=== PATIENT | female | born 1965 | race Caucasian/White ===

== ENCOUNTER 2016-07-24 06:52 | Emergency (ER) | payer OTHER ==
[2016-07-24 07:00] VITALS: RESP 16
--- NOTE | 2016-07-24 07:04 | EDPHY ---
H & P Stated Complaint: N/V and Chest tightness for 3days recent chnage in bipolar medications HPI/ROS: CHIEF COMPLAINT: Chest tightness, nausea, vomiting. HISTORY OF PRESENT ILLNESS: The patient is a 50-year-old female with a history of bipolar disorder who presents with chest tightness and nausea 2 days ago. These symptoms began after she was switched from Invega injections to oral Invega. She was given 9mg PO Invega at that time. She also had her Topamax dose increased from 50 mg to 75mg per day on Thursday. She had no other associated symptoms--such as shortness of breath, lightheadedness, or radiation of pain.She refused her medications yesterday. She admits mild associated diarrhea. Today she denies chest pain, fever, abdominal pain, shortness of breath, or other complaints. Her mother of a cardiac arrhythmia at 48. Her uncle had multiple bypass surgeries in his late 40s. She has no history of diabetes or hypertension. She does not know her cholesterol levels. REVIEW OF SYSTEMS: A ten point review of systems was performed and is negative with the exception of the items mentioned in the HPI. Source: Patient Exam Limitations: No limitations - Personal History LMP (Females 10-55): 8-14 Days Ago Current Tetanus/Diphtheria Vaccine: Unsure Current Tetanus Diphtheria and Acellular Pertussis (TDAP): Unsure - Medical/Surgical History Hx Asthma: No Hx Chronic Respiratory Disease: No Hx Diabetes: No Hx Cardiac Disease: No Hx Renal Disease: No Hx Cirrhosis: No Hx Alcoholism: No Hx HIV/AIDS: No Hx Splenectomy or Spleen Trauma: No Other PMH: Bipolar disorder. - Social History Smoking Status: Never smoked Additional Social History: Nonsmoker, no alcohol use. Moved to [place] from [place]--she has children in [place], is . - Physical Exam Exam: General Appearance: Alert. Vital signs reviewed. Blood pressure 120/83. Eyes: Pupils equal and round, no conjunctival injection, no discharge. Anicteric. ENT, Mouth: Mucous membranes are moist, no oropharyngeal erythema or edema. Neck: No lymphadenopathy, supple. Respiratory: Lungs are clear to auscultation; no wheezes, rales, or rhonchi. Cardiovascular: Regular rate and rhythm; no murmur, rub, or gallop. Gastrointestinal: Abdomen is soft and nontender, no masses or organomegaly, bowel sounds normal. Skin: Warm and dry, no rashes on exposed skin, normal color. Back: Nontender to palpation over the thoracolumbar spine. No CVAT. Extremities: No lower extremity edema, no calf tenderness or swelling. Neurological: Alert and oriented. Moving all four extremities easily and equally. Psychiatric: Normal affect. Constitutional: Initial Vital Signs Temperature (C) 37 C 07/24/16 06:57 Heart Rate 85 07/24/16 06:57 Respiratory Rate 16 07/24/16 06:57 Blood Pressure 120/83 H 07/24/16 06:57 O2 Sat (%) 96 07/24/16 06:57 O2 Delivery Mode Room Air Allergies/Adverse Reactions: amoxicillin Allergy (Verified 07/24/16 07:00) Penicillins Allergy (Verified 07/24/16 07:00) Home Medications: Medication Instructions Recorded INVEGA SUSTENNA 07/24/16 Medical Decision Making - Diagnostics EKG Interpretation: 12 lead EKG is interpreted in Trace master View by emergency department physician. ED Course/Re-evaluation: This 50-year-old female with a history of bipolar disorder presents with 2 days of chest pain and nausea. These symptoms began on Thursday after her [place] [facility] program initiated some changes in her medications. She was switched from Invega injections to oral Invega and had her first oral dose, 9mg. Her Topamax dose was increased from 50mg to 75mg as well at that time. She does not have any chest tightness or nausea on presentation today. She admits a mild associated diarrhea but no other symptoms. She does have a significant family cardiac history. An IV was established and labs ordered including cardiac enzymes. EKG obtained. CBC, chemistries, troponin were drawn. Troponin is normal. There is no anemia. No concerning laboratory values. On review of her EKG I specifically looked at QT interval, as Invega can cause QT prolongation. She has a normal QT interval. I do not find evidence in acute coronary syndrome and am not concerned that her chest pain 2 days ago had a cardiac source. She was reassured on this count. She will be seen her psychiatrist this afternoon. She has been given copies of her labs and her EKG. She will discuss how best she can continue with Invega. I do not feel that additional emergency department evaluation is needed. Differential Diagnosis: Chest pain including but not limited to medication side effect, myocardial ischemia, pulmonary embolus, chest wall pain, pleural inflammation and pulmonary infectious causes. - Data Points Laboratory Results: Laboratory Results 07/24/16 07:36 07/24/16 07:36 07/24/16 07/24/16 07:36 07:36 WBC 3.60 10^3/uL L 10^3/uL (3.80-9.50) RBC 4.22 10^6/uL 10^6/uL (4.18-5.33) Hgb 13.8 g/dL g/dL (12.6-16.3) Hct 38.7 % % (38.0-47.0) MCV 91.7 fL fL (81.5-99.8) MCH 32.7 pg pg (27.9-34.1) MCHC 35.7 g/dL g/dL (32.4-36.7) RDW 12.6 % % (11.5-15.2) Plt Count 175 10^3/uL 10^3/uL (150-400) MPV 10.4 fL fL (8.7-11.7) Neut % (Auto) 53.3 % % (39.3-74.2) Lymph % (Auto) 31.4 % % (15.0-45.0) [place] % (Auto) 11.7 % % (4.5-13.0) Eos % (Auto) 2.8 % % (0.6-7.6) Baso % (Auto) 0.8 % % (0.3-1.7) Nucleat RBC Rel Count 0.0 % % (0.0-0.2) Absolute Neuts (auto) 1.92 10^3/uL 10^3/uL (1.70-6.50) Absolute Lymphs (auto) 1.13 10^3/uL 10^3/uL (1.00-3.00) Absolute Monos (auto) 0.42 10^3/uL 10^3/uL (0.30-0.80) Absolute Eos (auto) 0.10 10^3/uL 10^3/uL (0.03-0.40) Absolute Basos (auto) 0.03 10^3/uL 10^3/uL (0.02-0.10) Absolute Nucleated RBC 0.00 10^3/uL 10^3/uL (0-0.01) Immature Gran % 0.0 % % (0.0-1.1) Immature Gran # 0.00 10^3/uL 10^3/uL (0.00-0.10) Sodium 141 mEq/L mEq/L (134-144) Potassium 3.8 mEq/L mEq/L (3.5-5.2) Chloride 108 mEq/L mEq/L (97-110) Carbon Dioxide 21 mEq/l L mEq/l (22-31) Anion Gap 12 mEq/L mEq/L (8-16) BUN 18 mg/dL mg/dL (7-23) Creatinine 0.9 mg/dL mg/dL (0.6-1.0) Estimated GFR > 60 Glucose 106 mg/dL H mg/dL (70-100) Calcium 8.9 mg/dL mg/dL (8.5-10.4) Troponin I < 0.012 ng/mL ng/mL (0-0.034) Departure - Departure Disposition: Home, Routine, Self-Care Clinical Impression: Chest pain Qualifiers: Chest pain type: other chest pain Qualified Code(s): R07.89 - Other chest pain Condition: Good Instructions: Noncardiac Chest Pain (ED) Additional Instructions: It is not entirely clear whether the chest pain and the nausea that you experienced 2 days ago, after taking Invega, is because of the Invega. However , it is plausible that that is the case. I recommend that you talk with your psychiatrist this afternoon, as planned, and discuss how you can best continue with oral Invega. I am providing you with a copy of your EKG and your laboratory studies from today. I do not think that you have a primary heart problem that caused you to have chest pain 2 days ago. If you develop recurrent chest pain, difficulty breathing, lightheadedness or dizziness--you should be re-examined. I am referring you to Dr. Us for primary care. Referrals: [facility] [Other] - As per Instructions Gabe Us MD [[facility] Primary Care Provider] - As per Instructions Report Scribed for: Marita Schultz Report Scribed by: Turner Villanueva Date of Report: 04/20/17 Time of Report: 07:20 Physician Review and Approval Statement: 07/24/16 07:04 Portions of this note were transcribed by the medical staff physician. I, Dr. Marita Schultz, personally performed the history, physical exam, and medical decision- making; and confirmed the accuracy of the information in the transcribed note.
--- NOTE | 2016-07-24 07:20 | CPEKG ---
Heart Rate: 74 RR Interval: 811 P-R Interval: 156 QRSD Interval: 76 QT Interval: 396 QTC Interval: 440 P [place]: 17 QRS [place]: -15 T Wave [place]: 18 EKG Severity - BORDERLINE ECG - EKG Impression: SINUS RHYTHM EKG Impression: BORDERLINE LEFT AXIS DEVIATION EKG Impression: BORDERLINE T ABNORMALITIES, ANTERIOR LEADS Electronically Signed By: Rusty Quigley 24-Jul-2016 18:09:59
[2016-07-24 07:58] LABS: ADD DIFF? NO; ADD MORPH? NO; ADD SCAN? NO; ATYPICAL LYMPHOCYTE FLAG 10 (0-99); FRAGMENT RBC FLAG 0 (0-99); HEMATOCRIT 38.7 % (38.0-47.0); HEMOGLOBIN 13.8 g/dL (12.6-16.3); LEFT SHIFT FLG 0 (0-99); LIPEMIA HEMOLYSIS FLAG 90 (0-99); MEAN CELL HEMOGLOBIN 32.7 pg (27.9-34.1); MEAN CELL HEMOGLOBIN CONCENTR. 35.7 g/dL (32.4-36.7); MEAN CELL VOLUME 91.7 fL (81.5-99.8); MEAN PLATELET VOLUME 10.4 fL (8.7-11.7); PLATELET CLUMPS FLAG 10 (0-99); PLATELET COUNT 175 10^3/uL (150-400); RED BLOOD CELL COUNT 4.22 10^6/uL (4.18-5.33); RED CELL DISTRIBUTION WIDTH 12.6 % (11.5-15.2)
[2016-07-24 08:13] LABS: CALCIUM 8.9 mg/dL (8.5-10.4); CARBON DIOXIDE 21 mEq/l (22-31); CHLORIDE 108 mEq/L (97-110); CREATININE 0.9 mg/dL (0.6-1.0); GLOMERULAR FILTRATION RATE > 60; GLUCOSE 106 mg/dL (70-100); POTASSIUM 3.8 mEq/L (3.5-5.2)
[2016-07-24 08:18] LABS: ANION GAP 12 mEq/L (8-16); SODIUM 141 mEq/L (134-144)
[2016-07-24 08:23] LABS: TROPONIN I < 0.012 ng/mL (0-0.034)
[2016-07-24 08:44] VITALS: BP 118/90; PULSE 89; TEMP 97.5; O2SAT 97
== END 2016-07-24 08:43 | disposition home or self-care (01) ==
DX: R07.89 Other chest pain (principal)

== ENCOUNTER 2017-01-14 17:38 | Emergency (ER) | payer OTHER ==
[2017-01-14 17:51] VITALS: BP 145/99; PULSE 104; RESP 18; TEMP 97.7; O2SAT 99
== END 2017-01-14 19:06 | disposition left against medical advice (07) ==
DX: Z53.21 Procedure and treatment not carried out due to patient leaving prior to being seen by health care provider (principal)

== ENCOUNTER 2018-01-20 16:13 | Observation (INO) | payer OTHER ==
[2018-01-20] MEDS ORDERED: NS 1,000 ML IV ONE ×2 (17:04)
[2018-01-20] MEDS ORDERED: ONDANSETRON 4 MG/2 ML VIAL IVP ONE (17:04)
--- NOTE | 2018-01-20 17:04 | EDPHY ---
H & P Smoking Status: Never smoked Time Seen by Provider: 01/20/18 16:42 HPI/ROS: Chief complaint. Nausea and vomiting HPI. 52-year-old female presents emergency department with vomiting 3 times last night. No diarrhea. No abdominal pain. No fever. No chest pain or difficulty breathing. Possibly bad food as the cause. Continues with slight nausea. She also was found to have an elevated Depakote level 163 on the 04 of January and then blood draw yesterday showed the Depakote level to be 158 ROS 10 systems were reviewed and negative with the exception of the elements mentioned in the history of present illness (Cm Copeland) Past Medical/Surgical History: Past medical history significant for bipolar illness (Cm Copeland) Social History: Divorce, nonsmoker, no alcohol (Cm Copeland) Physical Exam: General Appearance: Alert pleasant well-developed female mild distress vital signs significant for heart rate 111 Eyes: Pupils equal and round no pallor or injection. ENT, mucous membranes are dry Respiratory: There are no retractions, lungs are clear to auscultation. Cardiovascular: Regular rate and rhythm. Gastrointestinal: Abdomen is soft and nontender, no masses, bowel sounds normal. Neurological: Awake and alert, sensory and motor exams grossly normal. Skin: Warm and dry, no rashes. Musculoskeletal: Neck is supple nontender. Extremities symmetrical, full range of motion. Psychiatric: Patient is oriented X 3, there is no agitation. (Cm Copeland) Constitutional: Initial Vital Signs Temperature (C) 36.5 C 01/20/18 16:18 Heart Rate 111 H 01/20/18 16:18 Respiratory Rate 16 01/20/18 16:18 Blood Pressure 147/92 H 01/20/18 16:18 O2 Sat (%) 95 01/20/18 16:18 O2 Delivery Mode Room Air Allergies/Adverse Reactions: amoxicillin Allergy (Intermediate, Verified 01/14/17 17:48) Hives Penicillins Allergy (Intermediate, Verified 01/14/17 17:47) Hives Home Medications: Medication Instructions Recorded Benztropine Mesylate [Cogentin (*)] 0.5 mg PO BID 01/14/17 Divalproex ER [Depakote ER 500 MG 1,500 mg PO 01/14/17 (*)] Levomefolate/Algal Oil 1 each PO 01/14/17 [Deplin-Algal Oil 15 mg Capsule] Paliperidone [Invega 9mg ER (*)] 12 mg PO DAILY8 01/14/17 QUEtiapine FUMARATE [Seroquel 50 PRN 01/14/17 mg (*)] Topiramate [Topamax] 25 mg PO 01/14/17 metFORMIN HCL [Metformin HCl ER] 1,000 mg PO 01/14/17 Medical Decision Making Procedures: IV normal saline, Zofran (Cm Copeland) ED Course/Re-evaluation: Re-evaluation 5:45 p.m. Patient is stable. She is taking ice chips. Her caregiver is concerned about mental health and decompensation and would like a mental health evaluation. This is ordered. We will also order urine tox screen. Patient has begun to have mental health evaluation. Her Depakote level comes back at 170. I spoke with Dr. Huddleston psychiatrist who is concerned about mental health evaluation when the patient has Depakote toxicity. He request medical admission to have the Depakote level brought back into range and then further mental health about I consulted and discussed the case with Dr. Sprague, hospitalist who agrees to the admission At this point is not clear what kind of mental health hold the patient needs to be on. She is on a detained her. We were discussing this with section housekeeper of whether she has replaced on an M1 and then would have to go to the ICU or if the detained or can follow her to the of the floor for medical admission (Cm Copeland) I took over care of this patient at 9:00 p.m.. This patient is currently on a detainer. She is here with a history of bipolar disorder and currently admitted to the hospitalist service under Dr. Rivera for Depakote toxicity. She is also to be evaluated by Behavioral Health. Please see above for further details. Dr. Mayorga is to see the patient in the emergency department shortly and it will be determined if she will be placed on an M1 hold or a medical detainer. This was discussed with Dr. Omar Pruitt who assumed care at 11:00 p.m.. (Jayde Bro) Differential Diagnosis: Nausea and vomiting. I considered electrolyte abnormality. Patient had an elevated Depakote level yesterday and apparently though not taking any Depakote it is even higher today. (Cm Copeland) - Data Points Laboratory Results: Laboratory Results 01/20/18 16:55 18 16:55 18 18 18 17:58 16:55 16:55 WBC 3.90 10^3/uL 10^3/uL (3.80-9.50) RBC 4.30 10^6/uL 10^6/uL (4.18-5.33) Hgb 14.0 g/dL g/dL (12.6-16.3) Hct 38.9 % % (38.0-47.0) MCV 90.5 fL fL (81.5-99.8) MCH 32.6 pg pg (27.9-34.1) MCHC 36.0 g/dL g/dL (32.4-36.7) RDW 12.5 % % (11.5-15.2) Plt Count 146 10^3/uL L 10^3/uL (150-400) MPV 10.0 fL fL (8.7-11.7) Neut % (Auto) 67.7 % % (39.3-74.2) Lymph % (Auto) 21.0 % % (15.0-45.0) [place] % (Auto) 9.2 % % (4.5-13.0) Eos % (Auto) 1.3 % % (0.6-7.6) Baso % (Auto) 0.3 % % (0.3-1.7) Nucleat RBC Rel Count 0.0 % % (0.0-0.2) Absolute Neuts (auto) 2.64 10^3/uL 10^3/uL (1.70-6.50) Absolute Lymphs (auto) 0.82 10^3/uL L 10^3/uL (1.00-3.00) Absolute Monos (auto) 0.36 10^3/uL 10^3/uL (0.30-0.80) Absolute Eos (auto) 0.05 10^3/uL 10^3/uL (0.03-0.40) Absolute Basos (auto) 0.01 10^3/uL L 10^3/uL (0.02-0.10) Absolute Nucleated RBC 0.00 10^3/uL 10^3/uL (0-0.01) Immature Gran % 0.5 % % (0.0-1.1) Immature Gran # 0.02 10^3/uL 10^3/uL (0.00-0.10) Sodium 138 mEq/L mEq/L (135-145) Potassium 3.6 mEq/L mEq/L (3.3-5.0) Chloride 104 mEq/L mEq/L (97-110) Carbon Dioxide 22 mEq/l mEq/l (22-31) Anion Gap 12 mEq/L mEq/L (6-14) BUN 6 mg/dL L mg/dL (7-23) Creatinine 0.7 mg/dL mg/dL (0.6-1.0) Estimated GFR > 60 Glucose 93 mg/dL mg/dL (70-100) Calcium 9.7 mg/dL mg/dL (8.5-10.4) Lipase 65 IU/L IU/L (23-300) Urine Opiates Screen NEGATIVE (NEGATIVE) Acetaminophen < 10 mcg/mL L mcg/mL (10-30) Urine Barbiturates NEGATIVE (NEGATIVE) Valproic Acid 170.9 mcg/mL H mcg/mL (50.0-150.0) Ur Phencyclidine Scrn NEGATIVE (NEGATIVE) Ur Amphetamine Screen NEGATIVE (NEGATIVE) U Benzodiazepines Scrn NEGATIVE (NEGATIVE) Urine Cocaine Screen NEGATIVE (NEGATIVE) U Marijuana (THC) Screen NEGATIVE (NEGATIVE) Ethyl Alcohol < 10 mg/dL mg/dL (0-10) Medications Given: Discontinued Medications Sodium Chloride (Ns) 1,000 mls @ 0 mls/hr IV EDNOW ONE; Wide Open PRN Reason: Protocol Stop: 01/20/18 17:05 Last Admin: 01/20/18 17:13 Dose: 1,000 mls Sodium Chloride (Ns) 1,000 mls @ 0 mls/hr IV EDNOW ONE; Wide Open PRN Reason: Protocol Stop: 01/20/18 17:05 Last Admin: 01/20/18 17:14 Dose: 1,000 mls Ondansetron HCl (Zofran) 4 mg IVP EDNOW ONE Stop: 01/20/18 17:05 Last Admin: 01/20/18 17:14 Dose: 4 mg Departure - Departure Disposition: [facility] Clinical Impression: Depakote toxicity Condition: Fair
[2018-01-20 17:36] LABS: PLATELET COUNT 146 10^3/uL (150-400)
--- NOTE | 2018-01-20 22:00 | ASMTLCPROG ---
Notes Note: Notes: [facility] consulted with on-call Psychiatrist, Cb Huddleston MD who concurred with ED Physician, Cm Copeland, it was determined pt was in need of inpt medical care. [facility] communicated with pt.s guardian, Patricia Deion, to provide update. pending further medical evaluation pt may need to be considered for either additional stabilization in an inpt mental health treatment or a structured follow up at the [facility] treatment. Date Signed: 01/20/2018 09:58 PM Electronically Signed By:Haylee Hauser
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
[2018-01-20] MEDS ORDERED: ONDANSETRON 4 MG/2 ML VIAL IVP PRN (22:41)
[2018-01-20] MEDS ORDERED: ACETAMINOPHEN 325 MG TAB PO PRN (22:41)
[2018-01-20] MEDS ORDERED: ONDANSETRON DISINTEGRATING 4 MG TAB PO PRN (22:41)
[2018-01-20] MEDS ORDERED: NS 1,000 ML IV SCH (22:45)
[2018-01-20] MEDS ORDERED: MELATONIN 3 MG TAB PO PRN (23:53)
--- NOTE | 2018-01-21 00:46 | PDGENHP ---
History and Physical - Chief Complaint Nausea - History of Present Illness 52 yo F w/ hx of BPD presents with nausea. She was brought in by her caregiver due to concern for psychiatric decompensation. Psychiatry was called but recommended medical admission noting supratherapeutic valproic acid level. During my evaluation the patient is complaining only of mild nausea. Her speech is slightly pressured and her thought process tangential. She denies AVH and SI. She tells me she has been taking Depakote 1500 mg TID, but her memory seems a bit clouded by her current mood imbalance. She is very pleasant and cooperative but clearly disabled and without decision making capacity at this time. Despite this she is not a grave danger to herself or others at this time. She has been hemodynamically stable throughout her stay here thus far. Case discussed with Dr. Sprague; records reviewed in EMR. History Information - Allergies/Home Medication List Allergies/Adverse Reactions: amoxicillin Allergy (Intermediate, Verified 01/14/17 17:48) Hives Penicillins Allergy (Intermediate, Verified 01/14/17 17:47) Hives Home Medications: Benztropine Mesylate [Cogentin (*)] 0.5 mg PO BID 01/14/17 [Last Taken Unknown] Divalproex ER [Depakote ER 500 MG (*)] 1,500 mg PO 01/14/17 [Last Taken Unknown] Levomefolate/Algal Oil [Deplin-Algal Oil 15 mg Capsule] 1 each PO 01/14/17 [ Last Taken Unknown] Paliperidone [Invega 9mg ER (*)] 12 mg PO DAILY8 01/14/17 [Last Taken Unknown] QUEtiapine FUMARATE [Seroquel 50 mg (*)] PRN 01/14/17 [Last Taken Unknown] Topiramate [Topamax] 25 mg PO 01/14/17 [Last Taken Unknown] metFORMIN HCL [Metformin HCl ER] 1,000 mg PO 01/14/17 [Last Taken Unknown] I have personally reviewed and updated: family history, medical history - Past Medical History Additional medical history: Bipolar disorder - Surgical History Additional surgical history: Denies - Family History Additional family history: Denies - Social History Smoking Status: Never smoked Review of Systems Review of Systems: ROS: 10pt was reviewed & negative except for what was stated in HPI & below Physical Exam Physical Exam: Temp Pulse Resp BP Pulse Ox 36.7 C 100 18 150/94 H 93 01/20/18 23:00 01/20/18 23:00 01/20/18 23:00 01/20/18 23:00 01/20/18 23:00 Constitutional: not in pain, other (Mild agitation) Eyes: PERRL, EOMI Ears, Nose, Mouth, Throat: moist mucous membranes, no oral mucosal ulcers Cardiovascular: no murmur, rub, or gallop, tachycardia Respiratory: no respiratory distress, clear to auscultation Gastrointestinal: normoactive bowel sounds, soft, non-tender abdomen Skin: warm, normal color Musculoskeletal: full muscle strength, no muscle tenderness Neurologic: CN II-XII Intact, No weakness, No numbness Psychiatric: anxious, poor insight, other (Mildly pressured speech, tangential thought process), No suicidal ideation Lab Data & Imaging Review 01/20/18 16:55 01/20/18 16:55 WBC 3.90 10^3/uL (3.80-9.50) 01/20/18 16:55 RBC 4.30 10^6/uL (4.18-5.33) 01/20/18 16:55 Hgb 14.0 g/dL (12.6-16.3) 01/20/18 16:55 Hct 38.9 % (38.0-47.0) 01/20/18 16:55 MCV 90.5 fL (81.5-99.8) 01/20/18 16:55 MCH 32.6 pg (27.9-34.1) 01/20/18 16:55 MCHC 36.0 g/dL (32.4-36.7) 01/20/18 16:55 RDW 12.5 % (11.5-15.2) 01/20/18 16:55 Plt Count 146 10^3/uL (150-400) L 01/20/18 16:55 MPV 10.0 fL (8.7-11.7) 01/20/18 16:55 Neut % (Auto) 67.7 % (39.3-74.2) 01/20/18 16:55 Lymph % (Auto) 21.0 % (15.0-45.0) 01/20/18 16:55 Luce % (Auto) 9.2 % (4.5-13.0) 01/20/18 16:55 Eos % (Auto) 1.3 % (0.6-7.6) 01/20/18 16:55 Baso % (Auto) 0.3 % (0.3-1.7) 01/20/18 16:55 Nucleat RBC Rel Count 0.0 % (0.0-0.2) 01/20/18 16:55 Absolute Neuts (auto) 2.64 10^3/uL (1.70-6.50) 01/20/18 16:55 Absolute Lymphs (auto) 0.82 10^3/uL (1.00-3.00) L 01/20/18 16:55 Absolute Monos (auto) 0.36 10^3/uL (0.30-0.80) 01/20/18 16:55 Absolute Eos (auto) 0.05 10^3/uL (0.03-0.40) 01/20/18 16:55 Absolute Basos (auto) 0.01 10^3/uL (0.02-0.10) L 01/20/18 16:55 Absolute Nucleated RBC 0.00 10^3/uL (0-0.01) 01/20/18 16:55 Immature Gran % 0.5 % (0.0-1.1) 01/20/18 16:55 Immature Gran # 0.02 10^3/uL (0.00-0.10) 01/20/18 16:55 Sodium 138 mEq/L (135-145) 01/20/18 16:55 Potassium 3.6 mEq/L (3.3-5.0) 01/20/18 16:55 Chloride 104 mEq/L (97-110) 01/20/18 16:55 Carbon Dioxide 22 mEq/l (22-31) 01/20/18 16:55 Anion Gap 12 mEq/L (6-14) 01/20/18 16:55 BUN 6 mg/dL (7-23) L 01/20/18 16:55 Creatinine 0.7 mg/dL (0.6-1.0) 01/20/18 16:55 Estimated GFR > 60 01/20/18 16:55 Glucose 93 mg/dL (70-100) 01/20/18 16:55 Calcium 9.7 mg/dL (8.5-10.4) 01/20/18 16:55 Total Bilirubin 0.4 mg/dL (0.1-1.4) 01/20/18 16:58 Conjugated Bilirubin 0.2 mg/dL (0.0-0.5) 01/20/18 16:58 Unconjugated Bilirubin 0.2 mg/dL (0.0-1.1) 01/20/18 16:58 AST 16 IU/L (14-46) 01/20/18 16:58 ALT 14 IU/L (9-52) 01/20/18 16:58 Alkaline Phosphatase 46 IU/L (38-126) 01/20/18 16:58 Total Protein 7.4 g/dL (6.3-8.2) 01/20/18 16:58 Albumin 4.3 g/dL (3.5-5.0) 01/20/18 16:58 Lipase 65 IU/L (23-300) 01/20/18 16:55 Urine Opiates Screen NEGATIVE (NEGATIVE) 01/20/18 17:58 Acetaminophen < 10 mcg/mL (10-30) L 01/20/18 16:55 Urine Barbiturates NEGATIVE (NEGATIVE) 01/20/18 17:58 Valproic Acid 170.9 mcg/mL (50.0-150.0) H 01/20/18 16:55 Ur Phencyclidine Scrn NEGATIVE (NEGATIVE) 01/20/18 17:58 Ur Amphetamine Screen NEGATIVE (NEGATIVE) 01/20/18 17:58 U Benzodiazepines Scrn NEGATIVE (NEGATIVE) 01/20/18 17:58 Urine Cocaine Screen NEGATIVE (NEGATIVE) 01/20/18 17:58 U Marijuana (THC) Screen NEGATIVE (NEGATIVE) 01/20/18 17:58 Ethyl Alcohol < 10 mg/dL (0-10) 01/20/18 16:55 Assessment & Plan Assessment: 52 yo F w/ BPD presents with likely psychiatric decompensation and supratherapeutic valproic acid level. Plan: 1. Supratherapeutic valproic acid level - Level 170 on admission (upper limit of normal 150). Patient has no symptoms of severe toxicity at this time ( obtundation, hypotension, hepatic toxicity), but she does have mild nausea and agitation. - Admit for observation - Monitor on telemetry - mIVF overnight - Hold Depakote - Recheck level with morning labs 2. BPD - With likely acute decompensation; patient with mildly pressured speech and tangential thought process during my evaluation. She does not have decisional capacity at this time. I will therefore place a medical incapacity hold for now. If her symptoms escalate will evaluate for M1 hold if necessary. - TLC evaluation in the morning Diet - Regular Code - Full Ppx - LMWH Dispo - Admit under observation status
[2018-01-21 05:06] LABS: PLATELET COUNT 155 10^3/uL (150-400)
[2018-01-21] MEDS ORDERED: ENOXAPARIN 40 MG/0.4 ML SYR SC SCH (09:00)
--- NOTE | 2018-01-21 11:01 | ASMTCMCOM ---
CM Note CM Note Notes: Pt admitted last night for depakote toxicity. Pt lives in an apt alone but is checked on daily. She is not decisional and has a guardian Patricia Deion [phone]. CM spoke w/guardian, she would like the hospitalist to call pt's psychiatrist Merline Heath at [facility] at [phone], there have been several medication changes over the last week. DC Plan: TBD Date Signed: 01/21/2018 11:00 AM Electronically Signed By:Carolyn Connelly RN
[2018-01-21 12:17] VITALS: BP 144/99
--- NOTE | 2018-01-21 12:34 | HOSPPROG ---
Hospitalist Progress Note Assessment/Plan: 52 yo F w/ BPD presents with likely psychiatric decompensation and supratherapeutic valproic acid level. Today is my first encounter with the patient, chart reviewed. *Supratherapeutic valproic acid level - Level 170 on admission,now 164.5 (upper limit of normal 150). Patient has no symptoms of severe toxicity at this time ( obtundation, hypotension, hepatic toxicity) - patient is very impulsive, unable to keep the monitor worker on her, when on she has been in sinus - Hold Depakote - levels improving - checking an ammonia level *BPD & Schizoaffective disorfer -TLC evaluation done, pt without SI -she is calm and cooperative during my evaluation -per nursing staff she has been impulsive, ambulating frequently *Plan: Spoke to her psychiatrist at the [facility], Merline Heath [phone]/ cell [phone]. Patient presents w delirium but is psychotic. She has schizoaffective disorder and can be calm w people with authority. She took her friend's car yesterday and lost it. Spoke brooke Rick twice today, recommendation is for admission, will avoid placing her on a HOLD - it may create more stress for the patient. Spoke w Deion BERNAL and and he is fine with the admission. Spoke brooke Mayers in [facility] and he will help facilitate the transfer. The patient is medically clear to go to TLC but will need a repeat Valproic acid tomorrow to be sure she continues to trend down. Subjective: Rasheeda has no complaints; says she doesn't feel right, up in the room walking. Objective: Vital Signs Temp Pulse Resp BP Pulse Ox 36.6 C 105 H 20 144/99 H 94 01/21/18 12:00 01/21/18 12:00 01/21/18 12:00 01/21/18 12:00 01/21/18 12:00 Laboratory Results 01/21/18 04:48 01/21/18 04:48 01/20/18 01/21/18 01/22/18 05:59 05:59 05:59 Intake Total 2200 Balance 2200 - Physical Exam Constitutional: no apparent distress, appears nourished, not in pain Eyes: PERRL Ears, Nose, Mouth, Throat: hearing normal Cardiovascular: regular rate and rhythym Respiratory: no respiratory distress Skin: warm Musculoskeletal: full muscle strength Psychiatric: poor insight, other (impulsive, walking frequently) ICD10 Worksheet Patient Problems: Problems Problem Status Onset Valproic acid toxicity Acute - ICD10 Problem Qualifiers (1) Valproic acid toxicity
--- NOTE | 2018-01-21 14:41 | ASMTLACE ---
CARMELO Length of stay for Answers: 1 day current admission Acuity / Level of Answers: Yes Care: Did the patient have an inpatient admission? # of Emergency department Answers: 1-2 visits in the last 6 months Social determinants Answers: Mental health diagnosis (anxiety, depression, pers onality disorders, etc.) Score: 8 Date Signed: 01/21/2018 02:40 PM Electronically Signed By:Carolyn Connelly RN
--- NOTE | 2018-01-21 15:08 | ASMTCMCOM ---
CM Note CM Note Notes: Spoke w/MOLDED GRID AND PARTS INSPECTOR, pt put on an M1 hold. She has been evaluated by [facility] and will be transferred [facility] to [address] [place] [address]. DC Plan: Behavioral Health Date Signed: 01/21/2018 03:07 PM Electronically Signed By:Carolyn Connelly RN
--- NOTE | 2018-01-21 15:31 | ASMTDCNOTE ---
Case Management Discharge Discharge Order Complete? Answers: Yes Patient to Obtain Answers: Other Notes: Behavioral Medications Health/Adebayo Transportation Arranged Answers: [facility] will Pick (Date 01/21/2018 04:00 PM & Time) EMTALA Complete Answers: Yes Faxed Final Orders Answers: Yes Discharge Comments Notes: D/w PHLEBOTOMIST, CM called and spoke with Veronica at , they are ready to recieve pt. EMTALA completed by PHLEBOTOMIST and RN and copy placed in chart. Original M1 hold attatched to paperwork with DOMINGO mathews gave report. Pt's guardian Patricia notified of transfer. Date Signed: 01/21/2018 03:30 PM Electronically Signed By:Carolyn Connelly RN
--- NOTE | 2018-01-21 16:13 | GDS ---
DISCHARGE DIAGNOSES: 1. Valproic toxicity. 2. Bipolar disorder, schizoaffective disorder with psychoses. HISTORY OF PRESENT ILLNESS: Briefly, the patient is a 52-year-old female who was admitted with psych iatric decompensation and supratherapeutic valproic acid. I spoke with the patient's psychiatrist frieda jensen works at [facility]. Her name is Naomi Heath. The plan is for the patient to go to [address] [place] [address] for closer watching. HOSPITAL COURSE: 1. Supratherapeutic valproic acid level. Unclear why this was elevated. Fortunately, the patient h as no symptoms of severe toxicity. She is very impulsive, and we have been unable to keep her on the radiation monitor at this time. She is somewhat psychotic. She will be discharged to [address] [place] [address]. 2. Bipolar disorder and schizoaffective disorder with psychoses. This will be addressed on [facility]. DISCHARGE CONDITION: Stable. Blood pressure is 144/86, heart rate of 100, respiratory rate of 16, O 2 saturation on room air 93%, temperature 37.1 Celsius. DISCHARGE MEDICATIONS: Please see the EMR. DISCHARGE INSTRUCTIONS: 1. To hold her valproic acid. 2. To check a level tomorrow morning to make sure she is stabilizing. Copy requested to: Dr. Naomi Heath /[id number]/MODL
[2018-01-21] MEDS ORDERED: BENZTROPINE MESYLATE 1 MG TAB PO SCH (21:00)
[2018-01-21] MEDS ORDERED: BENZTROPINE MESYLATE 2 MG TAB PO SCH (21:00)
[2018-01-22] MEDS ORDERED: LITHIUM CARBONATE ER 450 MG TAB PO SCH (09:00)
[2018-01-22] MEDS ORDERED: OMEGA-3 FATTY ACIDS 1,000 MG CAP PO SCH (09:00)
[2018-01-22] MEDS ORDERED: metFORMIN SR 500 MG TAB PO SCH (09:00)
--- NOTE | 2018-01-22 09:38 | ASDISCHSUM ---
Discharge Information Plan Status: Medically Cleared to Leave: Discharge Date:01/21/2018 04:01 PM D[facility] Disposition:[facility] Projected Discharge Date:01/21/2018 11:00 AM Transportation at D/C:ALS/BLS Discharge Delay Reason: Follow-Up Date:01/21/2018 11:00 AM Discharge Slot: Final Diagnosis: Placement Information Referral Type:Psychiatric Hospital or Unit Referral ID:[id number] Provider Name:[facility] Address 1:[address] [place] [address] Phone Number: Address 2: Fax Number: [facility]:[place] Selection Factors: State:[place] Patient Contact Information Contact Name:NA Relationship:Legal guardian Address:[address] [place] [address] [phone] City:[facility] [place] [facility] Phone: State/Zip Code:[place] [address] Email: Financial Information [facility] Primary [facility] Desc[facility] Primary Plan Number:[id number] Secondary Plan Desc: Secondary Plan Number: Assessment Information TLC Progress Note Notes Note: Notes: [facility] consulted with on-call Psychiatrist, Cb Huddleston MD who concurred with ED Physician, Cm Copeland, it was determined pt was in need of inpt medical care. [facility] communicated with pt.s guardian, Patricia Albarran, to provide update. pending further medical evaluation pt may need to be considered for either additional stabilization in an inpt mental health treatment or a structured follow up at the [facility]. Date Signed: 01/20/2018 09:58 PM Electronically Signed By:Haylee Hauser TLC Evaluation TLC Evaluation - Basic Information Evaluation Start Date and 01/20/2018 07:00 PM Time Hospital Status Answers: Voluntary Patient statement Notes: Im here for a psych eval. Patricia been talking out of turn and not making sense. They told me I need to go to the hospital. My thinking is not clear. I wish I knew what to do when I didnt know what to do. I made bad decisions. Narrative Notes: Pt is a 52 year old female who presented to the [facility] Ed with vomiting 3 times last night. Pt continues to identify ongoing nausea. Pt was also found to have elevated Depakote level of 170 today and then a blood draw yesterday showed the Depakote level of 158. Pt determined per MD bates as alert, pleasant well developed female with mild distress vital signs significant for heart rate of 111. Pts utox was positive for Acetamnophen. Pt is involved in the [place]. She lives alone in an apt. but is supervised daily with medications. Pt when evaluated by TLC presented as confused and did not appear able to care for herself. She had pulled out her IV in the ED thinking she could leave the ED and had dressed herself noting she had her shoes on the wrong foot. Diagnosis History Notes: Pt has a hx of bipolar disorder with psychotic episodes in the past. Prior suicide attempts Notes: Pt denied any prior hx of past suicide attempts. Prior hospitalizations Notes: Pt has a hx of multiple hospitalizations primarily during manic episodes. Pts last hospitalization for mental health was in [place] in August of 2017 when pt was found on the side of the road in a confused state after driving impulsively out of state from [employer]. Treatment Responses Notes: Pt has required ongoing supervision with her daily life management including daily monitoring of her medications. History of violence Notes: Pt denied any past hx of violence either as a victim or violence towards others. Therapist: Therapist from [place] Psychiatrist: Dr. Wesley Medications (name, dosage, route, freq uency) Notes: Pt is prescribed Metformin 1,000 mg PO, Topamax 25 PO, Seroquel 50 PRN, Invega 12 mg PO daily, Deplin-Algal oil 15 mg capsule 1 each PO, Depakote ER 500 mg, Cogentin 0.5 mg PO BID. Allergies/Reaction Notes: Amoxicillin and Penicillin Sleep Notes: Pt stated she has been sleeping well. Appetite Notes: Pt reported recent increased nausea with some vomiting. She denied any known weight loss. Medical/Surgical history Notes: No current medical problems noted except recent nausea over the past few days. Substance use history (frequency, intensity, his tory, duration) Notes: Pt denied any past hx of substance use/abuse. Family composition Notes: Pt is the mother of 2 children ages 13 and 15. Her children reside with pt.s x-. Pt reported her parents are both . She has 1 brother living in [place]. Need for family Answers: No participation in patient's care Family psychiatric/substance abuse history Notes: Pt did not report any family hx of substance abuse or mental health problems. Developmental history Notes: There was no report of any developmental delay or known dx of ADD or ADHD. Abuse concerns Answers: None Marital status/children Notes: Pt is she said about 5 years ago after a 15 year marriage. Her two teenage children reside with her x-. Living situation Notes: Pt lives alone in an apt. She has daily management of her medications when she goes to the [facility] treatment facility for distribution of her daily meds. Sexual history/orientation Notes: Pt in not in a relationship. She is a heterosexual. Peer support/family strengths Notes: Pt has daily support from the [facility]. She also has regular contact with her Legal Guardian, Mejia Albarran [phone]. It was reported she does have a friend she visits on a regular basis. 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 Notes: Pt has no hx. Legal Notes: No known legal problems were reported. Worship/Spiritual Notes: Pt stated she is Caodaism but not much. Leisure Notes: Pt described herself as an introvert. She enjoys writing and meditating. Collateral Notes: Collateral inform was obtained from pt.'s guardian, Patricia Albarran [phone]. Patient's strengths Answers: Intelligent (Please select at least TWO strengths): Motivated for Treatment Willingness TLC Evaluation - Mental Status Exam Appearance: Answers: Disheveled Eye Contact: Answers: Good/Direct Mood: Answers: Euthymic Affect: Answers: Anxious Apprehensive Confused Distracted Indifferent Behavior: Answers: Cooperative Impulsive Restless Speech: Answers: Illogical Thought Process: Answers: Disorganized Distracted Insight: Answers: Poor Judgement: Answers: Poor Manic Signs/Symptoms Answers: Distractibility Impulsivity Anxiety Signs/Symptoms Answers: Generalized Anxiety Hallucinations: Answers: None Pt reported to have Answers: No suicidal/self-injuring ideation/behavior? Pt reported to be making Answers: No suicidal/self-injuring threats? Pt reported to have Answers: No aggression/assault ideation/behavior? Pt reported to be making Answers: No aggression/assault threats? Pt exhibits inability to Answers: Yes care for self/grave disability? Patient has a specific Answers: No plan? History of Answers: No suicidal/self-injuring ideation, behavior, or threats? History of Answers: No aggressive/assaultive ideation, behavior, or threats? History of serious Answers: No physical harm to self/others while in treatment setting? TLC Evaluation - Suicide/Homicide Risk Suicide Risk Factors: Answers: Agitation Bipolar Disorder Impulsivity None Current Suicidal Answers: No Ideation? Current Suicidal Ideation Answers: No in the Past 48 Hours? Suicide Internal Answers: Other Notes: Pt denies SI Protective Factors: Suicide External Answers: Positive Therapeutic Protective Factors: Relationships Responsibility to Children Ranking of patient's Answers: Low suicidal risk: Ranking of patient's Answers: Low homicidal risk: TLC Evaluation - Wrap-up AXIS I Diagnosis (include DSM-V and ICD-10 codes), must also be entered in [employer] which is the source of truth. Notes: Bipolar I Disorder, moderate 296.42 (F31.12) Delirium NOS 780.069 Evaluation End Date and 01/20/2018 10:20 PM Time (HH:MM): Date Signed: 01/20/2018 10:21 PM Electronically Signed By:Haylee Hauser CARMELO CARMELO Length of stay for Answers: 1 day current admission Acuity / Level of Answers: Yes Care: Did the patient have an inpatient admission? # of Emergency department Answers: 1-2 visits in the last 6 months Social determinants Answers: Mental health diagnosis (anxiety, depression, pers onality disorders, etc.) Score: 8 Date Signed: 01/21/2018 02:40 PM Electronically Signed By:Carolyn Connelly RN [facility] CM Progress Note CM Note CM Note Notes: Pt admitted last night for depakote toxicity. Pt lives in an apt alone but is checked on daily. She is not decisional and has a guardian Patricia Albarran [phone]. CM spoke w/guardian, she would like the hospitalist to call pt's psychiatrist Merline Heath at [facility] at [phone], there have been several medication changes over the last week. DC Plan: TBD Date Signed: 01/21/2018 11:00 AM Electronically Signed By:Carolyn Connelly RN [facility] CM Progress Note CM Note CM Note Notes: Spoke w/ENTRY LEVEL ACCOUNTING CLERK, pt put on an M1 hold. She has been evaluated by [facility] and will be transferred [facility] to [address] [place] [address]. DC Plan: Behavioral Health Date Signed: 01/21/2018 03:07 PM Electronically Signed By:Carolyn Connelly RN Case Management Discharge Plan Note Case Management Discharge Discharge Order Complete? Answers: Yes Patient to Obtain Answers: Other Notes: Behavioral Medications Health/Adebayo Transportation Arranged Answers: [facility] will Pick (Date 01/21/2018 04:00 PM & Time) EMTALA Complete Answers: Yes Faxed Final Orders Answers: Yes Discharge Comments Notes: D/w ENTRY LEVEL ACCOUNTING CLERK, CM called and spoke with Veronica at , they are ready to recieve pt. EMTALA completed by ENTRY LEVEL ACCOUNTING CLERK and RN and copy placed in chart. Original M1 hold attatched to paperwork with DOMINGO mathews gave report. Pt's guardian Patricia notified of transfer. Date Signed: 01/21/2018 03:30 PM Electronically Signed By:Carolyn Connelly RN Intervention Information
== END 2018-01-21 16:01 ==
LOC: INTOOBSV 21:20 → F3E 01-21 00:25
PROVIDERS: ADMIT Internal Medicine; ATTEND Internal Medicine
DX: T42.6X1A Poisoning by other antiepileptic and sedative-hypnotic drugs, accidental (unintentional), initial encounter (principal); R11.2 Nausea with vomiting, unspecified; F25.0 Schizoaffective disorder, bipolar type
CPT/HCPCS: 90791; 96361; 96372; 96374; 99285; G0378; 80305; G0480; J1650; J2405

== ENCOUNTER 2018-01-21 16:24 | Inpatient (IN) | payer OTHER ==
[2018-01-21] MEDS ORDERED: MAG HYDROX/AL HYDROX/SIMETH 30 ML UDCUP PO PRN (19:41)
[2018-01-21] MEDS ORDERED: ACETAMINOPHEN 325 MG TAB PO PRN (19:41)
[2018-01-21] MEDS ORDERED: MAGNESIUM HYDROXIDE 30 ML UDCUP PO PRN (19:41)
[2018-01-21] MEDS ORDERED: NICOTINE POLACRILEX 2 MG GUM B PRN (19:41)
[2018-01-21] MEDS: LITHIUM CARBONATE ER 300 MG TAB PO SCH (20:38)
[2018-01-22] MEDS: LITHIUM CARBONATE ER 300 MG TAB PO SCH ×2 (08:28→20:18)
[2018-01-22] MEDS ORDERED: BENZTROPINE MESYLATE 2 MG TAB PO ONE (11:01)
[2018-01-22] MEDS ORDERED: BENZTROPINE MESYLATE 1 MG TAB ONE (11:19)
--- NOTE | 2018-01-22 12:28 | BAPA ---
DATE OF SERVICE: 01/22/2018 CHIEF COMPLAINT: "I don't know why I'm here. My guardian asked me to go to the emergency room, next thing I know I am here. I was making a medication change. My Depakote level was too high, and I know I need to start lithium, that is why I am here. I think that's enough, I don't think you need to know anything else." HISTORY OF PRESENT ILLNESS: From the ED note dated 01/20/18, patient presented to the emergency department with vomiting 3 times the night of 01/19/18. Patient reported no diarrhea, no abdominal pain, no fever, no chest pain or difficulty breathing. Patient continued to have slight nausea in the emergency room. Patient was found to have an elevated Depakote level of 163 on January 04. Blood draw 01/19/18 revealed a Depakote level of 158. Patient's caregiver reported a concern regarding patient's mental health and decompensation, and requested a mental health evaluation. Patient's Depakote level in the ER came back at 170 with concern for Depakote toxicity. On-call psychiatrist requested medical admission to have Depakote level brought back into range due to concern of Depakote toxicity. From the history and physical dated 01/20/18, patient complained of mild nausea. Patient's speech was slightly pressured, and thought process was tangential. Patient denied auditory or visual hallucinations, and denied suicidal ideation. Patient was clearly disabled and without decision-making capacity at the time of being seen for history and physical. From the hospitalist's progress note dated 01/20/18, patient likely had psychiatric decompensation. Patient presented very impulsive , unable to keep residential monitor on her. Depakote levels were improving. Hospitalist spoke to patient's outpatient psychiatrist from [facility]. Patient has a history of schizoaffective disorder. Outpatient psychiatrist reports patient took her friend's car yesterday and lost it. From the [facility] evaluation dated 01/20/18, patient reported to the [facility] supervisor metal placing, "I'm here for a psych eval. I've been talking out of turn and not making sense. They told me I need to go to the hospital. My thinking is not clear. I wish I knew what to do and I didn't know what to do. I made bad decisions." Patient is involved in the [facility]. Patient lives alone in an apartment, but is supervised daily with medications from [facility]. Patient was admitted due to being gravely disabled, and is hospitalized for safety, crisis stabilization, and medication evaluation. PAST PSYCHIATRIC HISTORY: Patient's outpatient psychiatrist from [facility] reports patient has a diagnosis of schizoaffective disorder, bipolar type. Was recently well controlled on Depakote; however, patient's Depakote level was increasing of unknown etiology. Outpatient psychiatrist recommends patient's hospitalization for crisis stabilization, safety, and medication evaluation, with plan to switch patient from Depakote to lithium. Patient has no prior history of past suicide attempts. Patient has a history of multiple hospitalizations, primarily due to manic episodes. Patient's last hospitalization for mental health was in [place] in August 2017, when patient was found on the side of a road in a confused state after driving impulsively out of state from [place]. Patient has required ongoing supervision with her daily life management, including daily monitoring of her medications through [facility]. Patient reports no past history of violence, either as a victim or violence toward others. Patient is prescribed metformin 1000 mg p.o. daily, Topamax 25 mg p.o. daily, Seroquel 50 mg p.r.n., Invega 12 mg p.o. daily, Depakote ER 500 mg, and Cogentin 0.5 mg p.o. b.i.d. These medications are from the [facility] evaluation, and have not been verified. This CENTRAL OFFICE EQUIPMENT ENGINEER did speak with patient's outpatient psychiatrist. Outpatient psychiatrist verified Invega Sustenna 156 mg was administered approximately 2 weeks ago. These other medications will be verified with the patient, and will be continued as indicated during this hospitalization. This information for past psychiatric history is taken from the [facility] evaluation dated 01/20/18. ALLERGIES: Amoxicillin, penicillins. CURRENT MEDICATIONS: Wiley ER 600 mg p.o. twice daily, Cogentin 1 mg p.o. twice daily. PAST MEDICAL HISTORY: From the [facility] evaluation: No current medical problems noted, except recent nausea over the past few days. We will continue to gather medical history throughout the patient's stay. SOCIAL HISTORY: Patient is the mother of 2 children, ages 13 and 15. Children reside with patient's ex-. The patient reported her parents are both . Patient has 1 brother living in [place]. There is no report of any developmental delay or known diagnosis of ADD or ADHD. Patient has been for 5 years after a 15-year marriage. Patient lives alone in her apartment. Patient has daily management of her medications through [facility] for distribution of her daily medications. Patient is not in a relationship, and reports her sexual orientation as heterosexual. Patient has a legal guardian, and reports she does have friends she visits with on a regular basis. Patient is educated as a teacher, and apparently worked as a teacher, but was unable to provide details about her work history. Patient has no history. Patient has no known legal problems. Patient stated she is Oriental Orthodox. Patient describes herself as an introvert, and states she enjoys writing and meditating. SUBSTANCE USE HISTORY: Patient denied any past history of substance use or abuse. FAMILY PSYCHIATRIC HISTORY: Patient did not report any family history of substance abuse or mental health problems. ADMISSION LABS AND STUDIES: CBC from 01/21/18 within normal limits, except neutrophils were elevated at 78.1, lymphocytes were low at 12.5, eosinophils were low at 0.4, and basophils were low at 0.2. Absolute lymphocytes were low at 0.66, absolute eosinophils were low at 0.02, and absolute basophils were low at 0.01. BMP from 01/21/18 within normal limits, except BUN was low at 5, glucose was elevated at 113. Hemoglobin A1c was 5.1. Liver function within normal limits. Fasting lipid panel from 01/21/18 within normal limits, except cholesterol was elevated at 237, cholesterol risk factor was elevated at 1.6, LDL cholesterol calculated was elevated at 169, and LDL risk factor was elevated at 1.4. Non-HDL cholesterol was elevated at 193, LDL/HDL ratio was elevated at 3.84, and cholesterol/HDL ratio was elevated at 5.39. TSH from was 1.960, within normal limits. Toxicology screen from 01/20/18: Valproic acid was elevated at 164.5. Negative for substances of abuse screened , and negative for ethyl alcohol. MENTAL STATUS EXAM: The patient is a well-nourished female, looking older than stated chronological age. Attire is inappropriate. Dress is hospital garb and disheveled. Grooming status is inappropriate and disheveled. Ambulation is independent. Gait is normal and coordinated. Posture is normal and relaxed. Eye contact is appropriate and adequate. Motor activity is appropriate, with purposeful, organized, coordinated movements. Attitude is uncooperative, guarded, and defensive. Patient appears disinterested and does not relate well to this interviewer. Language production is spontaneous. Rate is hesitant, and latency of response is prolonged with irritable tone and appropriate volume , and amount is sparse. Articulation is clear. Patient reports mood as "sad," with constricted, flat and congruent affect. Patient's thought process is nonlinear and illogical, with tangential thought. No loose associations noted. Patient does not report suicidal or homicidal thoughts, ideas, or plans. Patient denies auditory or visual hallucinations. Patient denies delusions. Patient does not appear to be attending to internal stimuli. Patient is oriented to person, place, and time. Patient's attention and concentration are poor. The patient's insight and judgment are poor. There is no evidence of gross cognitive dysfunction, and no evidence of apparent dysfunction in recent or remote memory noted. The patient does not report undesirable side effects from current medications. DIAGNOSIS: Based on the patient's history and current presentation, her diagnosis is schizoaffective disorder, bipolar type. FORMULATION: Patient is a 52-year-old female, single, who presents to the hospital due to the inability to care for herself. Patient requires continued inpatient care because of current mood instability and recent crisis that led to this hospitalization. Patient presents with problems of disorganized behavior, notably borrowing her friend's car and losing it, and the inability to appropriately care for herself and communicate her needs. Patient's life has been affected by these problems, including the crisis that led to this hospitalization. The exacerbation of symptoms was likely preceded by the patient's fluctuating Depakote level, reaching the point of toxicity. Patient has a past psychiatric history of schizoaffective disorder, bipolar type, and is currently treated, with medications being monitored at [facility]. Patient is at a high safety risk due to current mood instability, recent crisis of borrowing and losing her friend's car, and the inability to care for herself and communicate her needs. Protective factors while hospitalized include ongoing safety checks, active involvement in treatment, and support from our treatment team. Patient could benefit from inpatient hospitalization for safety, crisis stabilization, and medication evaluation. PLAN: (1) Psychotropic medications: After reviewing options, risks, and benefits, patient agrees to continue current medications. No other medication changes at this time as more time is needed to determine ongoing tolerability and efficacy. Plan is to continue to observe patient for response and side effects from medications, and ongoing monitoring and evaluation. (2) Review with patient informed consent and recommendations for psychotropic medication treatment listed below (3) Labs: lithium prior to discharge (4) Therapy: continue milieu and group therapy (5) Further investigation including gathering information from patients relatives and review of past case records to inform treatment plan. (6) Safety/Wellness plan and follow-up outpatient appointments to be established prior to discharge. Next steps are for patient to meet with intensive care anaesthetist to plan a safe discharge plan and establish outpatient services for ongoing treatment. (7) Confer with inpatient treatment team regarding treatment plan. (8) Legal status: M1 hold; to be voluntary when M1 expires (9) Consider discharge on Thursday if patient is in stable condition, safe, and has a safe discharge plan. ESTIMATED LENGTH OF STAY: 5-7 days PSYCHOTROPIC MEDICATION TREATMENT INFORMED CONSENT and RECOMMENDATIONS: Review nature of condition, diagnosis, and prognosis. Review nature and purpose of psychotropic medication treatment. Review type of psychotropic medications being ordered. Review risk and benefits of psychotropic medication treatment. Review probable length of time will need to take medications. Review risk and benefits of not undergoing psychotropic medication treatment. Review alternative treatments to psychotropic medications. Review psychotropic medications contraindications, drug-drug interactions, side effects, and importance of reporting any side effects to a psychiatric provider or nurse during inpatient hospitalization, and upon discharge to patients psychiatric outpatient provider, primary care provider, or other health child care assistant. Review importance of asking a nurse, psychiatric provider, or primary care provider any questions or problems concerning the psychotropic medications. Verify patient understands the information that has been provided, and understands, accepts, and agrees to psychotropic medications. Review patients safety plan and importance of patient to communicate to staff while hospitalized if patient is ever a danger to self/others, or unable to care for self, and upon discharge, the importance for patient to contact [facility] or [facility], or go to the nearest emergency room, if patient is ever a danger to self/others, or unable to care for self. Recommend that upon discharge patient establish medication management treatment with a psychiatric provider, establishes routine therapy appointments, and follow-up with primary care provider. Verify patient understands and agrees to these recommendations. /[id number]/MODL MTDD
[2018-01-22] MEDS ORDERED: metFORMIN SR 500 MG TAB PO ONE (13:00)
--- NOTE | 2018-01-22 13:23 | ASMTBHMTP ---
Master Treatment Plan Master Treatment Plan Answers: Impaired Reality for: Date: 01/22/2018 Diagnosis on Admission: Schizoaffective Disorder, Bipolar Type 295.70 (F25.0) Expected length of stay: 5 Reason for admission: Notes: The patient stated, "I don't know exactly. My guardian said I needed to go to the hospital so I went." The patient's guardian is Mejia Albarran. The patient reported that her guardian "embelishes" her need for treatment. According to the patient's outpatient team she was admitted to complete a medication change and have further observation. The patient is going to begin taking lithium. Patient's stated presenting problems: Notes: The patient stated, "What day of the week is it?" The patient was delayed in her responses. She agreed to complete releases of information for her guardian and [facility] She later refused to sign the documents. Patient's goals for treatment: Notes: The patient did not respond. Patient's strengths: Notes: The patient stated, "Resilience, kindness, personality, and desire to see things go right." Identify supports outside of hospital: Notes: The patient is supported outside of the hospital by a friend, Diaz. Discharge criteria: Notes: Psychotic symptoms will be reduced or eliminated with return to baseline functioning in affect, thinking, and behavior prior to discharge. Initial disposition plan/considerations: Notes: The patient will return home. She requested privacy and refused to complete a release of information for [facility]. She reported that she can schedule her own appointments. Master Treatment Plan Required Signatures Psychiatrist signature: Answers: ESTER TatumP: RN on-shift signature: Answers: RN: Patient signature: Answers: Patient: Date Signed: 01/22/2018 01:22 PM Electronically Signed By:Cait Jorge
[2018-01-22] MEDS: BENZTROPINE MESYLATE 1 MG TAB PO SCH (20:18)
[2018-01-23] MEDS: BENZTROPINE MESYLATE 1 MG TAB PO SCH ×2 (08:38→20:07)
[2018-01-23] MEDS: LITHIUM CARBONATE ER 300 MG TAB PO SCH ×2 (08:38→20:06)
[2018-01-23] MEDS: metFORMIN SR 500 MG TAB PO SCH (08:38)
--- NOTE | 2018-01-23 14:43 | ASMTCMCOM ---
CM Note CM Note Notes: CC spoke with pt's guardian (GOClaude), Mejia [phone] - cell phone number, - office number. GOC stated she needs to be "in the loop" about the patient and he discharge. GOC stated pt cannot legally sign any documents GOC gave verbal permission for staff to speak with Mejia and [facility]. GOC stated she is currently at a work conference and will return on Thursday. Date Signed: 01/23/2018 02:42 PM Electronically Signed By:Jessica Villagomez
--- NOTE | 2018-01-23 16:08 | SOAPPROG ---
SOAP Progress Note Assessment/Plan: Assessment: 52 yo with h/o schizoaffective do per her outpatient prescriber, Dr. Wesley, at [facility]. Patient was admitted to ICU for VPA toxicity on 01/20/18. Plan: 01/23/18 16:04 1. Patient still presents confused, disorganized, though more coherent than when she presented to ED on 01/20/18. 2. Will decrease starting dose of lithium to 300mg BID as this medication can cause/worsen confusion, memory impairment. Starting at lower dose will reduce risk of worsening/prolonging the confusion/AMS patient experienced this week as a result of VPA toxicity. 3. Patient told PMHNP on Thursday she would be willing to sign in voluntary. CC to contact guardian for her consent as well. Subjective: Patient has been sleeping in room most of the day. She wakes up around lunch time, ate 100% of meal. She is wearing hospital gown over scrub pants with towel wrapped around her shoulders. She did participate in group therapy after lunch. She is more coherent and organized than at admission, however, patient still exhibits some confusion. It's unclear what patient's baseline cognitive function is like. It appears she had noticeable AMS in ED on 01/20/18, which was likely delirium d/t VPA toxicity. Unknown how much of this has already resolved or if her current presentation is effected by the residual effects. Objective: Vital Signs Temp Pulse Resp BP Pulse Ox 36.3 C 89 14 111/79 97 01/23/18 06:00 01/23/18 06:00 01/23/18 06:00 01/23/18 06:00 01/23/18 06:00 MSE: Affect: Flat Mood: "OK" TP: Disorganized, confused TC: Denies any SI/HI Insight/Judgment: Impaired - Time Spent With Patient Time Spent With Patient: 15" - Pending Discharge Pending Discharge Within 24 Hours: No Pending Discharge Within 48 Hours: No ICD10 Worksheet Patient Problems: Problems Problem Status Onset Valproic acid toxicity Acute Schizoaffective disorder, bipolar type Chronic
[2018-01-23] MEDS ORDERED: PNEUMOCOCCAL 0.5ML VACCINE VIAL IM ONE (16:36)
[2018-01-24] MEDS: metFORMIN SR 500 MG TAB PO SCH (08:25)
[2018-01-24] MEDS: BENZTROPINE MESYLATE 1 MG TAB PO SCH ×2 (08:25→20:18)
[2018-01-24] MEDS: LITHIUM CARBONATE ER 300 MG TAB PO SCH ×2 (08:25→20:18)
--- NOTE | 2018-01-24 14:49 | ASMTCMCOM ---
CM Note CM Note Notes: Pt. was resting in bed when CC approached. Pt. reports "I'm okay". Pt. stated she slept "really really well". Pt. reports getting "plenty of food", adding the food is good. Pt. stated she thinks her medications are making her tired and feel nauseous Pt. reports attending groups, and liking "art, and anger, and meditation". Pt. stated she missed court on Thursday in [place], [place] for a child custody hearing. Pt. stated "don't know why I'm in the hospital again". Pt. stated she would like to be on Seroquel or Abilify. Pt. stated her mother took lithium and "it was hard on her". Pt. denied SI, HI, AVH and paranoia. Pt. stated she is willing to stay voluntarily "until my meds are fixed". Pt. stated she wants to see her kids more. Pt. stated [facility]"doesn't want to let me go". Pt. stated her "guardian isn't a good influence right now" Pt. stated she has been working with her guardian for 3.5 years. Pt. stated "don't know why I'm not treated with more respect". Pt. presents as alert, calm, friendly, confused at times, good eye contact, smiling, and cooperative. Staff report pt. sleeping 9 hours and being medication compliant. Date Signed: 01/24/2018 02:49 PM Electronically Signed By:Jessica Villagomez
--- NOTE | 2018-01-24 15:12 | SOAPPROG ---
SOAP Progress Note Assessment/Plan: Assessment: 52 yo with h/o schizoaffective do per her outpatient prescriber, Dr. Wesley, at [facility]. Patient was admitted to ICU for VPA toxicity on 01/20/18. Plan: 01/23/18 16:04 1. Patient still presents confused, disorganized, though more coherent than when she presented to ED on 01/20/18. 2. Will decrease starting dose of lithium to 300mg BID as this medication can cause/worsen confusion, memory impairment. Starting at lower dose will reduce risk of worsening/prolonging the confusion/AMS patient experienced this week as a result of VPA toxicity. 3. Patient told PMHNP on Thursday she would be willing to sign in voluntary. CC to contact guardian for her consent as well. 01/24/18 15:08 1. More alert, better groomed, more coherent in her speech. Patient was able to respond to questions in more goal-directed and linear fashion. Her mental status seems to have improved, either d/t lower dose of lithium or resolving delirium from VPA toxicity or both. 2. Patient c/o nausea this AM, but states she had "a big lunch" and "I feel better." No vomiting. 3. Patient says she missed custody hearing about her children in [place], [place] last week. She'd like a medical excuse for court. 4. Voluntary Subjective: Patient is better groomed and dressed appropriately today. She is able to answer questions. She tells that she was supposed to go to custody hearing in [place] on Thursday. Supposedly she in 2013 and her two children, ages 13 and 15, live with their FOC in [place]. Objective: Vital Signs Temp Pulse Resp BP Pulse Ox 36.7 C 90 16 106/68 93 01/24/18 06:00 01/24/18 06:00 01/24/18 06:00 01/24/18 06:00 01/24/18 06:00 MSE: Affect: Flat Mood: "Better" TP: More linear and goal-directed TC: Denies any SI/HI Insight/Judgment: Improving - Time Spent With Patient Time Spent With Patient: 20" - Pending Discharge Pending Discharge Within 24 Hours: No Pending Discharge Within 48 Hours: No ICD10 Worksheet Patient Problems: Problems Problem Status Onset Valproic acid toxicity Acute Schizoaffective disorder, bipolar type Chronic
[2018-01-25] MEDS: BENZTROPINE MESYLATE 1 MG TAB PO SCH ×2 (08:16→18:06)
[2018-01-25] MEDS: metFORMIN SR 500 MG TAB PO SCH (08:16)
[2018-01-25] MEDS: LITHIUM CARBONATE ER 300 MG TAB PO SCH ×2 (08:16→18:06)
--- NOTE | 2018-01-25 08:43 | SOAPPROG ---
SOAP Progress Note Assessment/Plan: Assessment: Schizoaffective, bipolar type. Improvement noted. (see subjective/objective note). Patient has improved and plan for discharge tomorrow after lithium level. Plan: (1) Psychotropic medications: After reviewing options, risks, and benefits patient agrees to continue current medications. No medication changes at this time as more time is needed to determine ongoing tolerability and efficacy. Plan is to continue to observe patient for response and side effects from medications, and ongoing monitoring and evaluation. (2) Review with patient informed consent and recommendations for psychotropic medication treatment listed below (3) Labs: lithium level Thursday AM prior to discharge (4) Therapy: continue milieu and group therapy (5) Further investigation including gathering information from patients relatives and review of past case records to inform treatment plan. (6) Safety/Wellness plan and follow-up outpatient appointments to be established prior to discharge. Next steps are for patient to meet with vp care management to plan a safe discharge plan and establish outpatient services for ongoing treatment. (7) Confer with inpatient treatment team regarding treatment plan. (8) Legal status: voluntary (9) Consider discharge on Thursday if patient is in stable condition, safe, and has a safe discharge plan. PSYCHOTROPIC MEDICATION TREATMENT INFORMED CONSENT and RECOMMENDATIONS: Review nature of condition, diagnosis, and prognosis. Review nature and purpose of psychotropic medication treatment. Review type of psychotropic medications being ordered. Review risk and benefits of psychotropic medication treatment. Review probable length of time patient will need to take medications. Review risk and benefits of not undergoing psychotropic medication treatment. Review alternative treatments to psychotropic medications. Review psychotropic medications contraindications, drug-drug interactions, side effects, and importance of reporting any side effects to a psychiatric provider or nurse during inpatient hospitalization, and upon discharge to patients psychiatric outpatient provider, primary care provider, or other health child caregiver. Review importance of asking a nurse, psychiatric provider, or primary care provider any questions or problems concerning the psychotropic medications. Verify patient understands the information that has been provided, and understands, accepts, and agrees to psychotropic medications. Review patients safety plan and importance of patient to report to staff while hospitalized if patient is ever a danger to self/others, or unable to care for self, and upon discharge, the importance for patient to contact [facility] or [facility], or go to the nearest emergency room, if patient is ever a danger to self/others, or unable to care for self. Recommend that upon discharge patient establish medication management treatment with a psychiatric provider, establishes routine therapy appointments, and follow-up with primary care provider. Verify patient understands and agrees to these recommendations. 01/25/18 08:44 Subjective: Following up with patient for evaluation of psychosis, mickey, and safety. Patient reports, "I am feeling a lot better. I would like to discharge tomorrow back to my home instead of [facility] and continue treatment at [facility]." Patient expresses the following psychiatric symptoms mild anxiety. Patient reports taking medications as prescribed, and describes response to medications as fair. Patient does not report undesirable side effects from the medications, and agrees to continue current medications. Patient reports appetite as good, and reports eating all meals. Patient describes getting 8 hours of sleep, and reports she feels rested today. Patient requests to be discharged tomorrow to care of [facility]. Objective: Vital Signs Temp Pulse Resp BP Pulse Ox 36.7 C 100 16 124/78 H 97 01/25/18 06:00 01/25/18 06:00 01/25/18 06:00 01/25/18 06:00 01/25/18 06:00 NURSING REPORT: Consulted with nursing for update on patients progress in treatment. Nurses report patient is engaged in treatment, is attending groups with some prompting, slept 8 hours, expresses the following psychiatric symptoms : moderate anxiety, exhibits the following psychiatric symptoms: flat affect, withdrawn to room; is eating all meals, is agreeable to medications and taking as prescribed with no report of side effects, with no s/s of EPS/akathisia, and denies SI/HI, denies A/V hallucinations, and denies delusions. COAL OR ORE CONTROLLER UPDATE: follow-up with [facility] after discharge. MD REPORT FROM WEEKEND: Seems more coherent and organized on Thursday; recommend D /C to care of [facility]. MSE: The patient presents casually dressed and with good hygiene, and looks stated age. Patient is sitting, posture is upright, and position is relaxed. Patient appears awake, alert, and responds appropriately and reasonably during interview. Patient is engaged, relates well to interviewer, and emotional facial expression is appropriate to situation and changes appropriately with topic. Patient is cooperative, makes comfortable eye contact, and movements are voluntary, deliberate, coordinated, and smooth and even with no inappropriate movements. Patient makes laryngeal sounds effortlessly and shares conversation appropriately; pace of conversation is appropriate, and stream of talking is fluent; articulation is clear and understandable; word choice is effortless and appropriate for education level; completes sentences, occasionally pausing to think; rate and volume are appropriate for interview and setting. Patient reports mood as euthymic. Patients affect is flat and constricted, incongruent with mood report. Patient has linear and logical thinking, with no loose associations, tangential thought, thought blocking, concrete thinking, or any other signs of formal thought disorder. Patient denies suicidal and homicidal ideation, and denies hallucinations and delusions. Patient appears to be a reliable historian with sound judgement and good insight into current condition. Patient has no apparent dysfunction in recent or remote memory noted, and no evidence of gross cognitive dysfunction noted at any point during the interview. - Time Spent With Patient Time Spent With Patient: 15 minutes, met with patient individually. - Pending Discharge Pending Discharge Within 24 Hours: No Pending Discharge Within 48 Hours: No ICD10 Worksheet Patient Problems: Problems Problem Status Onset Valproic acid toxicity Acute Schizoaffective disorder, bipolar type Chronic
[2018-01-26 06:53] VITALS: BP 119/72
--- NOTE | 2018-01-26 07:59 | ASMTBHDC ---
Notes Note: Notes: CC confirmed client's discharge follow up appts, etc. Also, faxed over all necessary clinical information for Isaac Das, CC'D Veronica Morales as well. Follow up with: Isaac Das: Follow-up: Isaac Das Address: [address] [place] [address] [address], [place] [id number] [place] [id number] [id number] Intake: Today at 9:30am* Date Signed: 01/26/2018 07:58 AM Electronically Signed By:Saturnino Rodriguez
[2018-01-26] MEDS: LITHIUM CARBONATE ER 300 MG TAB PO SCH (08:48)
[2018-01-26] MEDS: BENZTROPINE MESYLATE 1 MG TAB PO SCH (08:48)
[2018-01-26] MEDS: metFORMIN SR 500 MG TAB PO SCH (08:48)
--- NOTE | 2018-01-26 09:54 | BDS ---
REASON FOR ADMISSION: From the ED provider note dated 01/20/2018, patient presented to the emergency department with vomiting 3 times the night prior to presentation. No diarrhea. No abdominal pain. No fever. Patient's Depakote level was found to be elevated with a level of 163 on January 04 and Depakote level from 01/19/2018, revealed continued elevated level at 158. While hospitalized, patient's caregiver reported concern about patient's mental health and decompensation and requested a mental health evaluation. Patient's Depakote level continued to be elevated at 170. Patient was admitted for Depakote toxicity. Medical admission was requested by on-call psychiatrist to have Depakote level brought into range and then further mental health evaluation. Patient has a history of mood disorder that is currently treated by [facility] on an outpatient basis. From hospitalist progress note from 01/21/2018, patient's presentation likely psychiatric decompensation. Patient is very impulsive, unable to keep to monitoring engineer on her. Patient is impulsive, ambulating frequently per report of nursing staff. From report of the patient's outpatient psychiatrist in [facility], patient took her friend's car prior to hospitalization and lost it. Patient is in currently decompensating underlying schizoaffective disorder, bipolar type. Patient was admitted involuntarily on an M1 hold due to being gravely disabled due to a mental illness. Patient was hospitalized for safety, crisis stabilization, and medication evaluation. ADMITTING DIAGNOSIS: Schizoaffective disorder, bipolar type. ADMISSION PHYSICAL EXAM: Patient was seen for a history and physical on 2017, for medical clearance for inpatient behavioral health stay and psychiatric medications and treatment. Patient was medically cleared for inpatient hospitalization, psychiatric medications and treatment. For further details, please refer to history and physical dated 01/21/2018. ADMISSION LABORATORY DATA: CBC from 01/21/2018, within normal limits, except neutrophils were elevated at 78.1, lymphocytes were low at 12.5, eosinophils were low at 0.4, basophils were low at 0.2, absolute lymphocytes were low at 0.66, absolute eosinophils were low at 0.02, and absolute basophils were low at 0.01. BMP from 01/21/2018, within normal limits, except BUN was low at 5, glucose was elevated at 113. Liver function from 01/20/2018, within normal limits. Hemoglobin A1c from 01/21/2018, was within normal limits at 5.1. Lipid panel from 01/21/2018, within normal limits, except cholesterol was elevated at 237, cholesterol risk factor was elevated at 1.6, LDL cholesterol calculated was elevated at 169, LDL risk factor was elevated at 1.4, non-HDL cholesterol was elevated at 193, LDL/HDL ratio was elevated at 3.84 and cholesterol/HDL ratio was elevated at 5.39. TSH was within normal limits on , with a level of 1.960. Patient's last test was on 05/07/2015 , and was negative at that time. Patient reported she has not been sexually active since February of 2015. Toxicology screen from 01/20/2018, was negative for substances of abuse screened, negative for ethyl alcohol. Valproic acid level from 01/21/2018, was elevated at 164.5. [place] level from 01/26/18: 1.0. MAJOR PROCEDURES/TESTS: None. HOSPITAL COURSE: The most prominent symptoms and behaviors while the patient was here were complaints of severe depression. Patient was tearful, withdrawn at time of admission. Patient presented sad with a flat affect. Patient's thought process was disorganized and tangential. Treatment modalities utilized were milieu and group therapy. [place] ER 300 mg p.o. b.i.d. was started to target mood symptoms and was tolerated with no report of side effects and with good response. Patient requested to continue metformin SR 1000 mg p.o. daily for prophylactic weight loss due to Invega Sustenna. Patient reports that she has gained weight since starting Invega Sustenna and she takes metformin for weight loss (anti-weight gain due to antipsychotic treatment). Cogentin 1 mg p.o. b.i.d. was started to target EPS symptoms (prophylactic), was tolerated with no report of side effects and with good response. Patient has improved considerably with no signs of psychiatric symptoms and no psychiatric symptoms expressed at time of discharge. Patient reports she has improved since admission, states to be in stable condition, feels safe to discharge, and she contracts for safety. Patient's response to treatment was good. There were no adverse or unexpected results of treatment. The patient was safe throughout her stay, active in treatment, engaged in groups, and was appropriate with staff and other patients. The treatment team consensus is the patient is in stable condition, she has a safe discharge plan, and she is ready to discharge today. CONDITION AT DISCHARGE: Patient is in stable condition and is no longer a danger to self or others, and is not gravely disabled due to mental illness. Patient is no longer in need of inpatient level of care, and can be safely and effectively treated within the community. The patients level of risk at time of discharge is low. MSE: The patient is casually dressed and with good hygiene , and looks stated age. Patient is sitting, posture is upright, and position is relaxed. Patient appears awake, alert, and responds appropriately and reasonably during interview. Patient is engaged, relates well to interviewer, and emotional facial expression is appropriate to situation and changes appropriately with topic. Patient is cooperative, makes comfortable eye contact , and movements are voluntary, deliberate, coordinated, and smooth and even with no inappropriate movements. Patient makes laryngeal sounds effortlessly and shares conversation appropriately; pace of conversation is appropriate, and stream of talking is fluent; articulation is clear and understandable; word choice is effortless and appropriate for education level; completes sentences, occasionally pausing to think; rate and volume are appropriate for interview and setting. Patient reports mood as euthymic. Patients affect is stable with full variable range, congruent with mood, and appropriate to speech and circumstances. Patient has linear and logical thinking, with no loose associations, tangential thought, thought blocking, concrete thinking, or any other signs of formal thought disorder. Patient denies suicidal and homicidal ideation, and denies hallucinations and delusions. Patient appears to be a reliable historian with sound judgement and good insight into current condition. Patient has no apparent dysfunction in recent or remote memory noted , and no evidence of gross cognitive dysfunction noted at any point during the interview. DISCHARGE DIAGNOSIS: Schizoaffective disorder, bipolar type. CURRENT MEDICATIONS: After reviewing options, risks, and benefits with the patient, patient agrees to continue lithium ER 300 mg p.o. b.i.d., metformin SR 1000 mg p.o. b.i.d. with meal, and Cogentin 1 mg p.o. b.i.d. Patient requests prescriptions for these medications at time of discharge. Prescriptions for 30 days are provided. Prescriptions are reviewed with the patient at time of discharge to ensure accuracy and patient understanding. Patient to continue Invega Sustenna 156 mg IM q.4 weeks, fish oil 2000 mg p.o. daily, and acetaminophen 650 mg p.o. q.4 hours p.r.n. for mild pain. DISPOSITION: Patient left hospital independently and voluntarily and plans to be admitted at [facility] under the care of [facility]. Patient plans to report to [facility] directly after discharge and patient will be picked up at time of discharge by a [facility] staff member. FOLLOWUP: life skills coordinator volunteer reports the appropriate outpatient follow-up services have been established and outpatient appointments have been scheduled. The patient received written instructions with times and dates of outpatient follow-up appointments. The following follow-up recommendations were provided to the patient at discharge: Continue psychotropic medications as prescribed and attend appointments as scheduled. Report any side effects to a psychiatric outpatient provider, a primary care provider, or other health school childcare attendant. Address any questions or problems concerning the psychotropic medications with a psychiatric outpatient provider, a primary care provider, or other health school childcare attendant. Contact [facility] or [facility], or go to the nearest emergency room, if you are ever a danger to yourself/others, or unable to care for yourself. As soon as possible, establish a routine medication management treatment with a psychiatric provider, establish routine therapy appointments, and follow-up with a primary care provider. LEGAL COURSE: Patient was admitted on an M1 hold for involuntary inpatient psychiatric hospitalization. Patient discharged today independently and voluntarily. ATTITUDE AT TIME OF DISCHARGE: The patients attitude was positive at time of discharge, and patient reports looking forward to discharging today. The patient reports she feels safe to discharge, is no longer a danger to herself or others, is in stable condition, and contracts for safety. Patient states she will continue medications as prescribed, and establish medication management treatment with an outpatient provider after discharge. Patient reports she understands the information that has been provided to her, and she understands, accepts, and agrees to psychotropic medications. Patient describes internal protective factors as the coping skills she has learned while hospitalized here, and she plans to continue to practice these coping skills after discharge. LABORATORY/RADIOLOGY STUDIES: There were no pending labs or studies at time of discharge. ADVANCED DIRECTIVES: There were no advance directives on file and the patient was full code during this hospitalization. The following psychotropic medication treatment informed consent and recommendations were provided to the patient at time of discharge. Patient reports she understands, accepts, and agrees to the information that has been provided. PSYCHOTROPIC MEDICATION TREATMENT INFORMED CONSENT and RECOMMENDATIONS: Review nature of condition, diagnosis, and prognosis. Review nature and purpose of psychotropic medication treatment. Review type of psychotropic medications being prescribed. Review risk and benefits of psychotropic medication treatment. Review probable length of time will need to take medications. Review risk and benefits of not undergoing psychotropic medication treatment. Review alternative treatments to psychotropic medications. Review psychotropic medications contraindications, side effects, and importance of reporting any side effects to a psychiatric provider, primary care provider, or other health school childcare attendant. Review importance of her asking a psychiatric provider or primary care provider any questions or problems concerning the psychotropic medications. Review importance of reporting to a psychiatric provider, primary care provider, or other health school childcare attendant if she plans to or becomes . Review safety plan and the importance to contact [facility] or [facility] , or go to the nearest emergency room, if ever a danger to yourself/others, or unable to care for yourself. Recommend upon discharge to establish routine medication management treatment with a psychiatric provider, establish routine therapy appointments, and follow-up with a primary care provider. Verify patient understands, accepts, and agrees to the information that has been provided. /[id number]/MODL MTDD
== END 2018-01-26 10:50 | disposition home or self-care (01) | DRG 885 ==
LOC: BBEH 16:24
PROVIDERS: ADMIT Psychiatry & Neurology Psychiatry; ATTEND Registered Nurse
DX: F25.0 Schizoaffective disorder, bipolar type (principal); Z23 Encounter for immunization
CPT/HCPCS: G0009